=== PATIENT | female | born 1970 | race Caucasian/White ===

== ENCOUNTER 2018-07-29 07:36 | Day surgery (SDC) | payer MEDICAID ==
[2018-07-29 08:06] VITALS: O2SAT 100
[2018-07-29 08:07] VITALS: BMI 29.6
[2018-07-29] MEDS ORDERED: Lactated Ringer's 1,000 ML IV ONE (09:20)
[2018-07-29] MEDS ORDERED: Propofol 10 mg/ml Inj (20 ML) ONE ×2 (09:27→09:34)
[2018-07-29 10:04] VITALS: TEMP 98.9
[2018-07-29 12:03] VITALS: BP 126/51; PULSE 62; RESP 16
== END 2018-07-29 10:50 | disposition home or self-care (01) ==
LOC: C.ENDO 07:36
PROVIDERS: ATTEND Internal Medicine Gastroenterology
DX: R19.5 Other fecal abnormalities (principal); D50.0 Iron deficiency anemia secondary to blood loss (chronic)
CPT/HCPCS: 45378; 84703; J2704; J7120

== ENCOUNTER 2018-09-30 06:46 | Day surgery (SDC) | payer MEDICAID ==
[2018-09-30 07:16] VITALS: BMI 28.9
[2018-09-30] MEDS ORDERED: Lactated Ringer's 1,000 ML IV ONE (07:48)
[2018-09-30] MEDS ORDERED: Midazolam 2 MG/2 ML VIAL ONE (08:00)
[2018-09-30] MEDS ORDERED: Propofol 10 mg/ml Inj (20 ML) ONE (08:00)
[2018-09-30] MEDS ORDERED: Lidocaine Hydrochloride 5 ML INJ ONE (08:01)
--- NOTE | 2018-09-30 08:13 | CP.SDSHP ---
Same Day Surgery H & P - History Proposed Procedure: egd/bx Pre-Op Diagnosis: anemia with ob positive stool - Previous Medical/Surgical History Pulmonary: Asthma Endocrine/Metabolic: Thyroid Disease Previous Surgical History: c section - Allergies Allergies: Allergies No Known Allergies Allergy (Verified 09/30/18 07:15) - Current Medications Current Medications: reviewed, per reconciliation - Physical Exam General Appearance: wdwn nad Vital Signs: Vital Signs 09/30/18 09/30/18 07:27 07:44 Temperature 97.5 F L Pulse Rate 79 79 Respiratory 19 Rate Blood Pressure 137/69 O2 Sat by Pulse 100 Oximetry Mental Status: Alert & Oriented x3 Heart: WNL Lungs: WNL GI: WNL - {Optional Preform as Required} Abdomen: WNL - Impression Impression: anemia with occult GI bleeding Pt. Evaluated Today:Candidate for Anesthesia & Procedure: Yes - Date & Time Date: 09/30/18 Time: 08:09 Short Stay Discharge - Short Stay Discharge Admitting Diagnosis/Reason for Visit: ANEMIA, UNSPECIFIED Disposition: HOME/ ROUTINE
[2018-09-30 08:45] VITALS: TEMP 98.6
[2018-09-30 09:05] VITALS: O2SAT 100
[2018-09-30 09:24] VITALS: BP 127/63; PULSE 63; RESP 13
== END 2018-09-30 09:50 | disposition home or self-care (01) ==
LOC: C.ENDO 06:46
PROVIDERS: ATTEND Internal Medicine Gastroenterology
DX: D50.9 Iron deficiency anemia, unspecified (principal); K20.9 Esophagitis, unspecified; J45.909 Unspecified asthma, uncomplicated; K29.50 Unspecified chronic gastritis without bleeding; K29.80 Duodenitis without bleeding; K31.89 Other diseases of stomach and duodenum
CPT/HCPCS: 43239; 82948; 84703; 88305; 88313; 88342; J2250; J2704; J3010; J7120